=== PATIENT | female | born 1960 | race African-American/Black ===

== ENCOUNTER 2016-11-08 17:58 | Emergency (ER) | payer MEDICAID ==
[~2016-11-08] VITALS: Ht 165.1 cm; Wt 120.0 kg
[2016-11-08] MEDS ORDERED: HYDROCODONE/ACETAMINOPHEN 5/325MG TABLET PO ONE (19:15)
[2016-11-08 20:16] VITALS: BP 154/98
== END 2016-11-08 20:47 | disposition home or self-care (01) ==
LOC: ER 18:05
DX: M25.532 Pain in left wrist (principal); M25.522 Pain in left elbow; M79.632 Pain in left forearm; I10 Essential (primary) hypertension; Z88.0 Allergy status to penicillin; V89.2XXA Person injured in unspecified motor-vehicle accident, traffic, initial encounter; Y93.89 Activity, other specified; Y92.89 Other specified places as the place of occurrence of the external cause; Y99.8 Other external cause status
CPT/HCPCS: 29125; 71020; 73080; 73090; 73110; 99284; A4565